=== PATIENT | female | born 1995 | race Caucasian/White ===

== ENCOUNTER 2020-04-17 11:59 | Emergency (ER) | payer MEDICAID ==
[~2020-04-17] VITALS: Ht 162.6 cm; Wt 82.0 kg
[2020-04-17] MEDS ORDERED: IBUPROFEN 600MG TABLET PO ONE (13:45)
[2020-04-17 14:15] VITALS: BP 150/75
== END 2020-04-17 14:25 | disposition home or self-care (01) ==
LOC: ER 11:59
DX: M54.5 Low back pain (principal); W22.8XXA Striking against or struck by other objects, initial encounter; Y93.89 Activity, other specified; Y92.018 Other place in single-family (private) house as the place of occurrence of the external cause
CPT/HCPCS: 72100; 73060; 99284